=== PATIENT | female | born 1950 | race Caucasian/White ===

== ENCOUNTER → 2017-11-12 | Outpatient (CLI) | payer MEDICARE, OTHER ==
[~2017-11-12] MED LIST: BUSP15 PO; Bactrim Ds Tab1 EACH PO; CITA20 PO; CRUTCH2 UD; CYCL10 PO; ESTR.05P TOP; FAMO10 PO; FURO20 PO; HYDACE5 PO; HYDACE5325 PO; MELO7.5 PO; OXYC1TAB11 PO; POTCHL10ER PO; PRED20 PO; PROG100 PO; lithium PO
== END | disposition home or self-care (01) ==
LOC: LAB 17:39 → LAB SHORT 17:39
DX: N89.8 Other specified noninflammatory disorders of vagina (principal)
CPT/HCPCS: 87070; 87205

== ENCOUNTER → 2018-04-28 | Outpatient (CLI) | payer MEDICARE, OTHER | END | disposition home or self-care (01) | LOC: LAB SHORT 14:23 → LAB EV 14:23 | DX: L03.90 Cellulitis, unspecified (principal) | CPT/HCPCS: 87070; 87075; 87205 ==

== ENCOUNTER 2018-05-27 11:28 | Emergency (ER) | payer MEDICARE, OTHER ==
[~2018-05-27] VITALS: Ht 172.7 cm; Wt 114.3 kg
[2018-05-27 12:06] LABS: BASOPHILS ABSOLUTE AUTO 0.04 K/mm3 (0.00-0.23); BASOPHILS PERCENT AUTO 1 % (0-2); EOSINOPHILS PERCENT AUTO 5 % (0-6); Hematocrit 34.3 % (33.0-51.0); Hemoglobin 10.3 g/dL (11.5-16.0); IMMATURE GRAN ABSOLUTE AUTO 0.02 K/mm3 (0.00-0.10); IMMATURE GRAN PERCENT AUTO 0 % (0-1); LYMPHOCYTES ABSOLUTE AUTO 1.41 K/mm3 (0.84-5.20); LYMPHOCYTES PERCENT AUTO 25 % (21-46); MONOCYTES PERCENT AUTO 10 % (4-13); Mean Corpuscular HGB 24.6 pg (26.0-34.0); Mean Corpuscular Volume 82 fL (80-100); Mean Platelet Volume 9.4 fL (9.1-12.4); NEUTROPHILS ABSOLUTE AUTO 3.39 K/mm3 (1.96-9.15); NEUTROPHILS PERCENT AUTO 59 % (41-73); Platelet Count 199 K/mm3 (150-400); RDW Coefficient Variation 14.4 % (11.7-14.2); RDW Standard Deviation 42.4 fL (35.1-46.3); Red Blood Cell Count 4.18 M/mm3 (3.80-5.20); White Blood Cell Count 5.76 K/mm3 (4.00-11.30)
[2018-05-27 12:27] LABS: Albumin, Blood 3.9 g/dL (3.4-5.0); Bilirubin, Total 0.4 mg/dL (0.1-1.0); Calcium, Blood 8.6 mg/dL (8.5-10.1); Creatinine, Blood 1.21 mg/dL (0.40-1.00); Globulin, Blood 3.9 g/dL (2.2-4.0); Potassium, Blood 3.5 mmol/L (3.5-5.5); Total Protein, Blood 7.8 g/dL (6.4-8.2)
[2018-05-27] MEDS ORDERED: DICL75ER PO (12:50)
[2018-05-27] MEDS ORDERED: Buspirone HCl7.5 MG PO (12:50)
[2018-05-27] MEDS ORDERED: ESTRADIOL1 EACH TD (12:50)
[2018-05-27] MEDS ORDERED: DESVENLAFAXINE100 M3 PO (12:51)
[2018-05-27] MEDS ORDERED: DICLOFENAC SOD100 G1 TOP (12:51)
[2018-05-27] MEDS ORDERED: Percocet 10-321 EACH PO (12:51)
[2018-05-27] MEDS ORDERED: TRAZ50 PO (12:51)
== END 2018-05-27 14:00 | disposition home or self-care (01) ==
LOC: ER 11:28
PROVIDERS: Emergency Medicine
DX: F41.9 Anxiety disorder, unspecified (principal); N17.9 Acute kidney failure, unspecified; Z79.899 Other long term (current) drug therapy; Z79.891 Long term (current) use of opiate analgesic
CPT/HCPCS: 36415; 71045; 80053; 85025; 93005; 93010; 99284-25

== ENCOUNTER → 2018-07-03 | Outpatient (CLI) | payer MEDICARE, OTHER ==
[~2018-07-03] MED LIST changes: +Buspirone HCl7.5 MG PO; +DESVENLAFAXINE100 M3 PO; +DICL75ER PO; +DICLOFENAC SOD100 G1 TOP; +ESTRADIOL1 EACH TD; +Percocet 10-321 EACH PO; +TRAZ50 PO
== END | disposition home or self-care (01) ==
LOC: LAB SHORT 13:50 → LAB 13:50
DX: N39.0 Urinary tract infection, site not specified (principal)
CPT/HCPCS: 87077; 87086; 87186

== ENCOUNTER → 2018-09-14 | Outpatient (CLI) | payer MEDICARE, OTHER ==
[~2018-09-14] MED LIST changes: +CENTRUM SILVER1 EAC2 PO; +DESV50 PO; +FAMO20 PO; +FURO40 PO; +GABA100 PO; +GABA300 PO; +MERIBIN5 MG PO; +MINIVELLE1 EACH TD; +OMEPRAZOLE20 MG PO; +Oxycodone-Apap1 EA14 PO
== END | disposition home or self-care (01) ==
LOC: LAB SHORT 14:20 → LAB 14:20
DX: N39.0 Urinary tract infection, site not specified (principal)
CPT/HCPCS: 87077; 87086; 87186

== ENCOUNTER 2018-11-13 05:48 | Day surgery (SDC) | payer MEDICARE, OTHER ==
[~2018-11-13] VITALS: Ht 160 cm; Wt 117.0 kg
[~2018-11-13 05:48] MED LIST changes: -CENTRUM SILVER1 EAC2 PO; -DESV50 PO; -FAMO20 PO; -FURO40 PO; -GABA100 PO; -GABA300 PO; -MERIBIN5 MG PO; -MINIVELLE1 EACH TD; -OMEPRAZOLE20 MG PO; -Oxycodone-Apap1 EA14 PO
[2018-11-13] MEDS ORDERED: Oxycodone-Apap1 EA14 PO (06:24)
[2018-11-13] MEDS ORDERED: FURO40 PO (06:25)
[2018-11-13] MEDS ORDERED: FURO20 PO (06:25)
[2018-11-13] MEDS ORDERED: FAMO20 PO (06:25)
[2018-11-13] MEDS ORDERED: CENTRUM SILVER1 EAC2 PO (06:26)
[2018-11-13] MEDS ORDERED: DESV50 PO (06:26)
[2018-11-13] MEDS ORDERED: MINIVELLE1 EACH TD (06:27)
[2018-11-13] MEDS ORDERED: PROG100 PO (06:28)
[2018-11-13] MEDS ORDERED: OMEPRAZOLE20 MG PO (06:28)
[2018-11-13] MEDS ORDERED: MERIBIN5 MG PO (06:34)
[2018-11-13] MEDS ORDERED: GABA300 PO (06:36)
[2018-11-13] MEDS ORDERED: GABA100 PO (06:37)
--- NOTE | 2018-11-13 08:35 | NUR ---
PT ARRIVED BACK TO RECOVERY ROOM IN BED. RIGHT RADIAL TR BAND SITE WITH WRIST BOARD SOFT NON-TENDER WITH NO HEMATOMA AND NO PULSATILE BLEEDING. PT DENIES CHEST PAIN. CALL LIGHT IN REACH.
--- NOTE | 2018-11-13 10:40 | NUR ---
10CC AIR REMOVED FROM R WRIST TR BAND. -BLEEDING OR SWELLING.
--- NOTE | 2018-11-13 11:48 | NUR ---
TR BAND REMOVED FROM R WRIST. -BLEEDING OR SWELLING. PUNCTURE AREA CLEANED WITH NS. CLOTH DOT DRSG PLACED. R WRIST SPLINT REAPPLIED. IV REMOVED. PT VERBALIZED UNDERSTANDING OF WRITTEN AND VERBAL D/C INST. PT TAKEN OUT OF THE HRT CENTER VIA W/C.
== END 2018-11-13 12:00 | disposition home or self-care (01) ==
LOC: MHTC 05:48
DX: I25.119 Atherosclerotic heart disease of native coronary artery with unspecified angina pectoris (principal); I10 Essential (primary) hypertension; E66.9 Obesity, unspecified; Z82.49 Family history of ischemic heart disease and other diseases of the circulatory system; M19.90 Unspecified osteoarthritis, unspecified site; E11.22 Type 2 diabetes mellitus with diabetic chronic kidney disease; N18.9 Chronic kidney disease, unspecified; K21.9 Gastro-esophageal reflux disease without esophagitis; F41.9 Anxiety disorder, unspecified
CPT/HCPCS: 82947; 93454; 99152; 99153; C1769; C1894; J1644; J1885; J2250; J3010; J7030; Q9967

== ENCOUNTER → 2019-02-01 | Outpatient (CLI) | payer MEDICARE, OTHER ==
[~2019-02-01] MED LIST changes: +CENTRUM SILVER1 EAC2 PO; +DESV50 PO; +FAMO20 PO; +FURO40 PO; +GABA100 PO; +GABA300 PO; +MERIBIN5 MG PO; +MINIVELLE1 EACH TD; +OMEPRAZOLE20 MG PO; +Oxycodone-Apap1 EA14 PO
== END ==
LOC: LAB SHORT 18:09 → LAB 18:09
DX: N39.0 Urinary tract infection, site not specified (principal)
CPT/HCPCS: 87086

== ENCOUNTER 2019-04-09 13:56 | Observation (INO) | payer MEDICARE, OTHER ==
[~2019-04-09] VITALS: Ht 165.1 cm; Wt 90.7 kg
[~2019-04-09 13:56] MED LIST changes: -Buspirone HCl7.5 MG PO; -DESV50 PO; -GABA100 PO; -MINIVELLE1 EACH TD; -OMEPRAZOLE20 MG PO; -OXYC1TAB11 PO; -TRAZ50 PO
[2019-04-09 15:03] LABS: BASOPHILS ABSOLUTE AUTO 0.04 K/mm3 (0.00-0.23); BASOPHILS PERCENT AUTO 1 % (0-2); EOSINOPHILS ABSOLUTE AUTO 0.13 K/mm3 (0.00-0.68); EOSINOPHILS PERCENT AUTO 2 % (0-6); Hematocrit 37.5 % (33.0-51.0); Hemoglobin 12.7 g/dL (11.5-16.0); IMMATURE GRAN ABSOLUTE AUTO 0.02 K/mm3 (0.00-0.10); IMMATURE GRAN PERCENT AUTO 0 % (0-1); LYMPHOCYTES ABSOLUTE AUTO 1.48 K/mm3 (0.84-5.20); LYMPHOCYTES PERCENT AUTO 23 % (21-46); MONOCYTES PERCENT AUTO 9 % (4-13); Mean Corpuscular HGB 31.4 pg (26.0-34.0); Mean Corpuscular HGB Conc 33.9 g/dL (31.5-36.5); Mean Corpuscular Volume 93 fL (80-100); Mean Platelet Volume 8.8 fL (9.1-12.4); NEUTROPHILS ABSOLUTE AUTO 4.12 K/mm3 (1.96-9.15); NEUTROPHILS PERCENT AUTO 65 % (41-73); Platelet Count 177 K/mm3 (150-400); RDW Coefficient Variation 12.4 % (11.7-14.2); RDW Standard Deviation 41.8 fL (35.1-46.3); Red Blood Cell Count 4.05 M/mm3 (3.80-5.20); White Blood Cell Count 6.39 K/mm3 (4.00-11.30)
[2019-04-09 15:07] LABS: Alanine Aminotransfer (ALT/SGP 23 U/L (12-78); Albumin, Blood 3.7 g/dL (3.4-5.0); Albumin/Globulin Ratio 0.9 (0.8-1.8); Alk Phos 116 U/L (50-136); Anion Gap 7 mmol/L (6-16); Aspartate Aminotrans (AST/SGOT 13 U/L (12-37); Bilirubin, Total 0.5 mg/dL (0.1-1.0); Blood Urea Nitrogen 13 mg/dL (8-24); Bun/Creatinine Ratio 17.3 (12.0-20.0); CO2, Blood 26 mmol/L (21-32); Calcium, Blood 9.1 mg/dL (8.5-10.1); Chloride, Blood 106 mmol/L (98-108); Creatinine, Blood 0.75 mg/dL (0.40-1.00); Ethanol (Alcohol), Blood, Med <3 mg/dL; Globulin, Blood 4.2 g/dL (2.2-4.0); Glomerular Filtration Rate >60 (60-); Glucose, Blood 92 mg/dL (70-99); Salicylate <1.7 mg/dL (2.8-20.0); Sodium, Blood 139 mmol/L (136-145); Total Protein, Blood 7.9 g/dL (6.4-8.2)
[2019-04-09 15:08] LABS: Acetaminophen, Random <2.0 ug/mL (10.0-30.0)
[2019-04-09] MEDS ORDERED: Norco 10-325 T1 EACH PO (17:27)
[2019-04-09] MEDS ORDERED: Voltaren100 GM TOP (17:27)
[2019-04-09] MEDS ORDERED: CYCL10 PO (17:28)
[2019-04-09] MEDS ORDERED: OXYC1TAB11 PO (18:32)
[2019-04-09] MEDS ORDERED: MINIVELLE1 EACH TOP (18:33)
[2019-04-09] MEDS ORDERED: PROG100 PO (18:34)
[2019-04-09] MEDS ORDERED: Buspirone HCl7.5 MG PO (18:34)
[2019-04-09] MEDS ORDERED: DESVENLAFAXINE100 M2 PO (18:36)
[2019-04-09] MEDS ORDERED: GABA300 PO (18:36)
[2019-04-09] MEDS ORDERED: OMEPRAZOLE20 MG PO (18:38)
[2019-04-09] MEDS ORDERED: MYRBETRIQ50 MG PO (18:39)
[2019-04-09] MEDS ORDERED: TRAZ100 PO (18:39)
[2019-04-09] MEDS ORDERED: ATOR40TA PO (18:41)
[2019-04-09 18:47] LABS: Source, Urine Voided
[2019-04-09 18:51] LABS: Bilirubin, Urine Neg (Neg); Blood, Urine Neg (Neg); Glucose Qualitative, Urine Neg (Neg); Ketones, Urine Neg (Neg); Leukocyte Esterase, Urine 1+ (Neg); Nitrite, Urine Neg (Neg); Protein, Urine Neg (Neg); Urobilinogen, Urine NORM (Normal)
[2019-04-09] MEDS ORDERED: Aspir 8181 MG PO (19:10)
[2019-04-09 19:13] LABS: Appearance, Urine Clear (Clear); Color, Urine Yellow (P-Yellow)
[2019-04-09 19:14] LABS: Bacteria Few /hpf; Red Blood Cells, Urine 0-2 /hpf (0-2); Squamous Epithelial Cells Few /hpf (Few)
[2019-04-09 19:26] LABS: U Amphetamine Screen Not Detected; U Barbituate Screen Not Detected; U Benzodiazapine Screen Not Detected; U Buprenorphine Screen Not Detected; U Cannabinoids Screen Not Detected; U Cocaine Screen Not Detected; U Methadone Screen Not Detected; U Methamphetamine Screen Not Detected; U Opiates Screen Not Detected; U Oxycodone Screen DETECTED; U Phencyclidine Screen Not Detected; U Propoxyphene Screen Not Detected
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
--- NOTE | 2019-04-10 10:24 | NUR ---
CALLED CARROLL IN DISCHARGE PLANNING AND SHE WILL SEE IF SHE CAN FIND SOME RESOURCES TO HELP THE PT WITH SOME OF HER HOME ISSUES.
--- NOTE | 2019-04-10 14:30 | NUR ---
SPOKE TO STUDY LEAD XIAO- PT TELE-PSYCH REPORT IS STILL PENDING IN THE COMPUTER. SPOKE TO MARIANA STEWARD IN PALLIATIVE CARE WHO REVIEWED THE CHART AND SAW THE ADDENDUM DR IBARRA PLACED. VASYL LEONARD CALLED ED AND HAD A COPY OF THE REPORT SENT UP FOR DR FLORES TO READ. PT TO DISCHARGE HOME. SAFETY PLAN TO BE COMPLETED PRIOR TO DISCHARGE. 2MD HOLD LIFTED. CAMERAS DC'D.
--- NOTE | 2019-04-10 17:11 | NUR ---
DISCHARGE NOTE- PT WAS GIVEN VERBAL AND WRITTEN DISCHARGE INSTRUCTIONS AND ACKNOWLEDGED UNDERSTANDING OF THEM. PT WAS ESCORTED OUT VIA W/C TO THE PT ENTRANCE BY THE TOASTER OPERATOR, NO FURTHER QUESTIONS AT THE TIME OF DISCHARGE. PT HAD NO IV ACCESS TO DC.
== END 2019-04-10 16:48 | disposition home or self-care (01) ==
LOC: ER 13:56 → MEDS 13:57
PROVIDERS: Emergency Medicine; ADMIT Hospitalist
DX: R45.851 Suicidal ideations (principal); R73.03 Prediabetes; K21.9 Gastro-esophageal reflux disease without esophagitis; N39.3 Stress incontinence (female) (male); E78.5 Hyperlipidemia, unspecified; M19.90 Unspecified osteoarthritis, unspecified site; Z79.82 Long term (current) use of aspirin; Z79.899 Other long term (current) drug therapy; Z91.040 Latex allergy status
CPT/HCPCS: 36415; 80053; 81001; 85025; 87086; 96372; 99285-25; A9270-GY; G0378; G0480; J1650; Q3014

== ENCOUNTER → 2019-10-18 | Outpatient (CLI) | payer MEDICARE, OTHER ==
[~2019-10-18] MED LIST changes: +ATOR40TA PO; +Aspir 8181 MG PO; +Buspirone HCl7.5 MG PO; +DESVENLAFAXINE100 M2 PO; +MINIVELLE1 EACH TOP; +MYRBETRIQ50 MG PO; +Norco 10-325 T1 EACH PO; +OMEPRAZOLE20 MG PO; +OXYC1TAB11 PO; +TRAZ100 PO; +Voltaren100 GM TOP
== END | disposition home or self-care (01) ==
LOC: LAB 19:08 → LAB SHORT 19:08
DX: R39.15 Urgency of urination (principal)
CPT/HCPCS: 87077; 87086; 87186

== ENCOUNTER 2022-05-28 14:48 | Emergency (ER) | payer MEDICARE, OTHER ==
[~2022-05-28] VITALS: Ht 160 cm; Wt 76.2 kg
[2022-05-28 15:20] LABS: BASOPHILS ABSOLUTE AUTO 0.02 K/mm3 (0.00-0.23); BASOPHILS PERCENT AUTO 0 % (0-2); EOSINOPHILS ABSOLUTE AUTO 0.18 K/mm3 (0.00-0.68); EOSINOPHILS PERCENT AUTO 3 % (0-6); Hematocrit 33.4 % (33.0-51.0); Hemoglobin 10.3 g/dL (11.5-16.0); IMMATURE GRAN ABSOLUTE AUTO 0.03 K/mm3 (0.00-0.10); IMMATURE GRAN PERCENT AUTO 0 % (0-1); LYMPHOCYTES ABSOLUTE AUTO 1.31 K/mm3 (0.84-5.20); LYMPHOCYTES PERCENT AUTO 19 % (21-46); MONOCYTES ABSOLUTE AUTO 0.62 K/mm3 (0.16-1.47); MONOCYTES PERCENT AUTO 9 % (4-13); Mean Corpuscular HGB 26.5 pg (26.0-34.0); Mean Corpuscular HGB Conc 30.8 g/dL (31.5-36.5); Mean Corpuscular Volume 86 fL (80-100); Mean Platelet Volume 8.7 fL (9.1-12.4); NEUTROPHILS ABSOLUTE AUTO 4.82 K/mm3 (1.96-9.15); NEUTROPHILS PERCENT AUTO 69 % (41-73); Platelet Count 211 K/mm3 (150-400); RDW Coefficient Variation 13.9 % (11.7-14.2); RDW Standard Deviation 42.6 fL (35.1-46.3); Red Blood Cell Count 3.89 M/mm3 (3.80-5.20); White Blood Cell Count 6.98 K/mm3 (4.00-11.30)
[2022-05-28 15:27] LABS: Albumin, Blood 3.3 g/dL (3.4-5.0); Albumin/Globulin Ratio 0.8 (0.8-1.8); Bilirubin, Total 0.4 mg/dL (0.1-1.0); Bun/Creatinine Ratio 21.7 (12.0-20.0); Calcium, Blood 8.9 mg/dL (8.5-10.1); Creatinine, Blood 0.78 mg/dL (0.40-1.00); Globulin, Blood 4.4 g/dL (2.2-4.0); Potassium, Blood 4.1 mmol/L (3.5-5.5); Total Protein, Blood 7.7 g/dL (6.4-8.2)
== END 2022-05-28 17:20 | disposition home or self-care (01) ==
LOC: ER 14:48
PROVIDERS: Physician Assistant
DX: J20.8 Acute bronchitis due to other specified organisms (principal); K08.89 Other specified disorders of teeth and supporting structures; R05.9 Cough, unspecified; Z91.040 Latex allergy status; Z79.899 Other long term (current) drug therapy; Z79.82 Long term (current) use of aspirin
CPT/HCPCS: 36415; 71046; 80053; 85025; 99284-25

== ENCOUNTER → 2023-03-13 | Outpatient (CLI) | payer MEDICARE, OTHER ==
[2023-03-13 13:48] LABS: CHOL/HDL RATIO 1.5; Cholesterol 144 mg/dL (50-200); HDL Cholesterol 97 mg/dL (>39); LDL/HDL RATIO 0.4; Low Density Lipoprotein Chol 34 mg/dL (0-110); Triglycerides 64 mg/dL (30-160); Very Low Density Lipoprot Chol 12 mg/dL (6-32)
== END ==
LOC: LAB SHORT 11:31 → LAB 11:31
PROVIDERS: Student in an Organized Health Care Education/Training Program
DX: E78.5 Hyperlipidemia, unspecified (principal)
CPT/HCPCS: 80061

== ENCOUNTER → 2023-03-28 | Outpatient (CLI) | payer MEDICARE, OTHER ==
[2023-03-28 13:13] LABS: BASOPHILS ABSOLUTE AUTO 0.01 K/mm3 (0.00-0.23); BASOPHILS PERCENT AUTO 0 % (0-2); EOSINOPHILS ABSOLUTE AUTO 0.16 K/mm3 (0.00-0.68); EOSINOPHILS PERCENT AUTO 3 % (0-6); Hematocrit 34.7 % (33.0-51.0); Hemoglobin 11.1 g/dL (11.5-16.0); IMMATURE GRAN ABSOLUTE AUTO 0.01 K/mm3 (0.00-0.10); IMMATURE GRAN PERCENT AUTO 0 % (0-1); LYMPHOCYTES ABSOLUTE AUTO 0.69 K/mm3 (0.84-5.20); LYMPHOCYTES PERCENT AUTO 14 % (21-46); MONOCYTES ABSOLUTE AUTO 0.65 K/mm3 (0.16-1.47); MONOCYTES PERCENT AUTO 13 % (4-13); Mean Corpuscular HGB 27.3 pg (26.0-34.0); Mean Corpuscular Volume 86 fL (80-100); Mean Platelet Volume 9.6 fL (9.1-12.4); NEUTROPHILS ABSOLUTE AUTO 3.38 K/mm3 (1.96-9.15); NEUTROPHILS PERCENT AUTO 69 % (41-73); Platelet Count 137 K/mm3 (150-400); RDW Coefficient Variation 13.3 % (11.7-14.2); RDW Standard Deviation 41.8 fL (35.1-46.3); Red Blood Cell Count 4.06 M/mm3 (3.80-5.20)
[2023-03-30 03:42] LABS: A/G RATIO 1.4 (1.2-2.2); ALKALINE PHOSPHATASE, S 110 IU/L (44-121); ALT (SGPT) 19 IU/L (0-32); AST (SGOT) 19 IU/L (0-40); BILIRUBIN, TOTAL <0.2 mg/dL (0.0-1.2); BUN 21 mg/dL (8-27); BUN/CREATININE RATIO 23 (12-28); CALCIUM, SERUM 8.4 mg/dL (8.7-10.3); CARBON DIOXIDE, TOTAL 19 mmol/L (20-29); CHLORIDE, SERUM 102 mmol/L (96-106); CREATININE, SERUM 0.92 mg/dL (0.57-1.00); GLOBULIN, TOTAL 2.9 g/dL (1.5-4.5); GLUCOSE, SERUM 102 mg/dL (70-99); POTASSIUM, SERUM 4.7 mmol/L (3.5-5.2); PROTEIN, TOTAL, SERUM 7.1 g/dL (6.0-8.5); SODIUM, SERUM 137 mmol/L (134-144)
== END ==
LOC: LAB 11:35 → LAB SHORT 11:35
PROVIDERS: Student in an Organized Health Care Education/Training Program
DX: R53.83 Other fatigue (principal)
CPT/HCPCS: 80053; 84443; 85025

== ENCOUNTER 2023-06-08 16:08 | Emergency (ER) | payer BC ==
[~2023-06-08] VITALS: Ht 170.2 cm; Wt 104.3 kg
[2023-06-08 16:12] VITALS: BP 153/73
[2023-06-08] MEDS ORDERED: Acetaminophen 500 MG Tab PO ONE (16:25)
[2023-06-08] MEDS ORDERED: Ketorolac Tromethamine 30mg Vial IM ONE (16:25)
[2023-06-08] MEDS ORDERED: Cyclobenzaprine HCl 10 MG Tab PO ONE (16:25)
[2023-06-08] MEDS ORDERED: Cyclobenzaprine5 MG PO (16:31)
== END 2023-06-08 16:48 | disposition home or self-care (01) ==
LOC: ER 16:08
DX: S80.02XA Contusion of left knee, initial encounter (principal); S80.01XA Contusion of right knee, initial encounter; S43.402A Unspecified sprain of left shoulder joint, initial encounter; S43.401A Unspecified sprain of right shoulder joint, initial encounter; S13.4XXA Sprain of ligaments of cervical spine, initial encounter; M17.0 Bilateral primary osteoarthritis of knee; M19.011 Primary osteoarthritis, right shoulder; M19.012 Primary osteoarthritis, left shoulder; W01.0XXA Fall on same level from slipping, tripping and stumbling without subsequent striking against object, initial encounter; Z91.040 Latex allergy status; Z79.890 Hormone replacement therapy; Z79.899 Other long term (current) drug therapy; Z79.82 Long term (current) use of aspirin
CPT/HCPCS: 96372; 99283-25; A9270; J1885

== ENCOUNTER → 2024-02-24 | Outpatient (CLI) | payer MEDICARE, OTHER ==
[~2024-02-24] MED LIST changes: +Cyclobenzaprine5 MG PO
[2024-03-04 10:36] LABS: B PERTUSSIS/PARAPERTUSS SOURCE Nasopharyngeal; BORD PARAPERTUSSIS BY PCR Not Detected; BORDETELLA PERTUSSIS BY PCR Not Detected
== END | disposition home or self-care (01) ==
LOC: LAB SHORT 18:55 → LAB 18:55
PROVIDERS: Student in an Organized Health Care Education/Training Program
DX: R05.3 Chronic cough (principal)
CPT/HCPCS: 87798

== ENCOUNTER → 2024-09-02 | Outpatient (CLI) | payer MEDICARE, OTHER ==
[~2024-09-02] MED LIST changes: +ACET500 PO; +ATOR10 PO; -ATOR40TA PO; +BUPR100 PO; +NAPR500ERA PO; +OMEP20ER PO; -OMEPRAZOLE20 MG PO; -OXYC1TAB11 PO; +OXYCODONE-ACET1 EAC2 PO; +PREMARIN0.45 MG PO; -TRAZ100 PO; +TRAZ50 PO; +Vitamin B Comple1 EA PO
[2024-09-03 07:54] LABS: Influenza A/2009-H1 Not Detected (NOT DETECT); SARS-Cov-2 (COVID-19), BioFire Not Detected (NOT DETECT)
== END ==
LOC: LAB SHORT 19:00 → LAB 19:00
PROVIDERS: Student in an Organized Health Care Education/Training Program
DX: J06.9 Acute upper respiratory infection, unspecified (principal)
CPT/HCPCS: 0202U

== ENCOUNTER 2024-09-25 20:25 | Observation (INO) | payer MEDICARE, OTHER ==
[~2024-09-25] VITALS: Ht 160 cm; Wt 95.2 kg
[2024-09-25 20:51] LABS: BASOPHILS ABSOLUTE AUTO 0.05 K/mm3 (0.00-0.23); BASOPHILS PERCENT AUTO 1 % (0-2); EOSINOPHILS ABSOLUTE AUTO 0.36 K/mm3 (0.00-0.68); EOSINOPHILS PERCENT AUTO 5 % (0-6); Hematocrit 37.8 % (33.0-51.0); Hemoglobin 13.1 g/dL (11.5-16.0); IMMATURE GRAN ABSOLUTE AUTO 0.02 K/mm3 (0.00-0.10); IMMATURE GRAN PERCENT AUTO 0 % (0-1); LYMPHOCYTES ABSOLUTE AUTO 1.96 K/mm3 (0.84-5.20); LYMPHOCYTES PERCENT AUTO 27 % (21-46); MONOCYTES ABSOLUTE AUTO 0.93 K/mm3 (0.16-1.47); MONOCYTES PERCENT AUTO 13 % (4-13); Mean Corpuscular HGB Conc 34.7 g/dL (31.5-36.5); Mean Corpuscular Volume 89 fL (80-100); NEUTROPHILS ABSOLUTE AUTO 4.05 K/mm3 (1.96-9.15); NEUTROPHILS PERCENT AUTO 55 % (41-73); NRBC ABSOLUTE 0.00 K/mm3 (0.00-0.02); NRBC Auto 0.0 /100 WBC (0.0-0.2); Platelet Count 200 K/mm3 (150-400); RDW Coefficient Variation 13.4 % (11.7-14.2); RDW Standard Deviation 43.1 fL (35.1-46.3)
[2024-09-25 21:19] LABS: Alanine Aminotransfer (ALT/SGP 64.0 U/L (12-78); Albumin, Blood 3.7 g/dL (3.4-5.0); Albumin/Globulin Ratio 0.9 (0.8-1.8); Anion Gap 10.0 mmol/L (3-11); Aspartate Aminotrans (AST/SGOT 79.0 U/L (12-37); Bilirubin, Total 0.8 mg/dL (0.1-1.0); Blood Urea Nitrogen 37.0 mg/dL (8-24); CO2, Blood 21.0 mmol/L (21-32); Calcium, Blood 8.9 mg/dL (8.5-10.1); Chloride, Blood 112.0 mmol/L (98-108); Creatinine, Blood 1.26 mg/dL (0.40-1.00); Globulin, Blood 4.0 g/dL (2.2-4.0); Glucose, Blood 131.0 mg/dL (70-99); Potassium, Blood 3.3 mmol/L (3.5-5.5); Sodium, Blood 140.0 mmol/L (136-145); Total Protein, Blood 7.7 g/dL (6.4-8.2)
[2024-09-25] MEDS ORDERED: NS 1,000 ML IV SCH (21:40)
[2024-09-25 23:04] LABS: Source, Urine Straight Cath
[2024-09-25 23:20] LABS: Bilirubin, Urine Neg (Neg); Glucose Qualitative, Urine Neg (Neg); Ketones, Urine 1+ (Neg); Leukocyte Esterase, Urine 1+ (Neg); Protein, Urine 2+ (Neg); Specific Gravity, Urine 1.020 (1.003-1.022); Urobilinogen, Urine NORM (Normal)
[2024-09-25 23:29] LABS: Color, Urine Yellow (P-Yellow)
[2024-09-25 23:30] LABS: Red Blood Cells, Urine 0-2 /hpf (0-2)
[2024-09-26] VITALS (17 sets, daily range): BP systolic 94–139; BP diastolic 53–97
[2024-09-26] MEDS ORDERED: CefTRIAXone Sodium 1,000 MG in NS 50 ML IV ONE (01:35)
[2024-09-26] MEDS ORDERED: Magnesium Hydroxide Conc 10 ML UDC PO PRN (01:45)
[2024-09-26] MEDS ORDERED: NS 1,000 ML IV SCH (01:50)
[2024-09-26] MEDS ORDERED: Potassium Chl 20MEQ/Water100ML 100 ML IV STA (01:56)
[2024-09-26] MEDS ORDERED: MetroNIDAZOLE 500MG/NS 100 ml 100 ML IV SCH (02:14)
[2024-09-26] MEDS ORDERED: DESV50 PO (03:16)
[2024-09-26] MEDS ORDERED: MYRBETRIQ25 MG PO (03:18)
[2024-09-26 06:14] LABS: BASOPHILS ABSOLUTE AUTO 0.04 K/mm3 (0.00-0.23); BASOPHILS PERCENT AUTO 1 % (0-2); EOSINOPHILS ABSOLUTE AUTO 0.28 K/mm3 (0.00-0.68); EOSINOPHILS PERCENT AUTO 5 % (0-6); Hematocrit 33.9 % (33.0-51.0); Hemoglobin 11.4 g/dL (11.5-16.0); IMMATURE GRAN ABSOLUTE AUTO 0.01 K/mm3 (0.00-0.10); IMMATURE GRAN PERCENT AUTO 0 % (0-1); LYMPHOCYTES ABSOLUTE AUTO 2.01 K/mm3 (0.84-5.20); LYMPHOCYTES PERCENT AUTO 34 % (21-46); MONOCYTES ABSOLUTE AUTO 0.75 K/mm3 (0.16-1.47); MONOCYTES PERCENT AUTO 13 % (4-13); Mean Corpuscular HGB Conc 33.6 g/dL (31.5-36.5); Mean Corpuscular Volume 91 fL (80-100); NEUTROPHILS ABSOLUTE AUTO 2.76 K/mm3 (1.96-9.15); NEUTROPHILS PERCENT AUTO 47 % (41-73); NRBC ABSOLUTE 0.00 K/mm3 (0.00-0.02); NRBC Auto 0.0 /100 WBC (0.0-0.2); Platelet Count 150 K/mm3 (150-400); RDW Coefficient Variation 13.6 % (11.7-14.2); RDW Standard Deviation 44.4 fL (35.1-46.3)
[2024-09-26 06:32] LABS: Anion Gap 10.0 mmol/L (3-11); Blood Urea Nitrogen 32.0 mg/dL (8-24); CO2, Blood 22.0 mmol/L (21-32); Calcium, Blood 7.9 mg/dL (8.5-10.1); Chloride, Blood 113.0 mmol/L (98-108); Creatinine, Blood 0.94 mg/dL (0.40-1.00); Glucose, Blood 90.0 mg/dL (70-99); Potassium, Blood 3.4 mmol/L (3.5-5.5); Sodium, Blood 142.0 mmol/L (136-145)
[2024-09-26] MEDS ORDERED: Ondansetron HCl 2 MG / ML 2ML Vial ONE ×2 (07:04→10:18)
[2024-09-26] MEDS ORDERED: Dexamethasone Sod Phos 10 MG/ML 1ML VIAL ONE ×2 (07:04→10:18)
[2024-09-26] MEDS ORDERED: Rocuronium Bromide 10 MG/ML 5ML Injection IV ONE ×2 (07:04→10:22)
[2024-09-26] MEDS ORDERED: FentaNYL Citrate 50 MCG/ML 2 ML Injection ONE (07:06)
[2024-09-26] MEDS ORDERED: Ondansetron HCl 2 MG / ML 2ML Vial IV PRN (07:25)
[2024-09-26] MEDS ORDERED: FentaNYL Citrate 50 MCG/ML 2 ML Injection IV PRN ×2 (07:25)
[2024-09-26] MEDS ORDERED: Albuterol 2.5 MG/3 ML VIAL INH PRN (07:25)
[2024-09-26] MEDS ORDERED: HYDROmorphone HCl/Pf 1MG SYR IV PRN (07:25)
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
[2024-09-26] MEDS ORDERED: Vitamin B Complex 1 EA Softgel PO SCH (09:00)
[2024-09-26] MEDS ORDERED: Lactobacil 2-S.Thermo-Bifido 1 1 Cap PO SCH (09:00)
--- NOTE | 2024-09-26 09:11 | NUR ---
PT TO PROCEDURE AT THIS TIME.
[2024-09-26] MEDS ORDERED: Lidocaine HCl 4% 5 ML SDA ONE (09:44)
[2024-09-26] MEDS ORDERED: Midazolam HCl 1MG / ML 2ML Vial ONE (09:46)
[2024-09-26] MEDS ORDERED: Bupivacaine 0.5% HCl 5 MG/ML 30MLVIAL ONE (09:52)
[2024-09-26] MEDS ORDERED: Midazolam HCl 1MG / ML 2ML Vial IV ONE (10:00)
[2024-09-26] MEDS ORDERED: Sugammadex Sodium 200 MG/2ML SDV (100 MG/ML) ONE (10:19)
[2024-09-26] MEDS ORDERED: Ketorolac Tromethamine 30mg Vial ONE (10:19)
[2024-09-26] MEDS ORDERED: HYDROmorphone HCl/Pf 1MG SYR ONE (11:49)
--- NOTE | 2024-09-26 12:21 | NUR ---
ARRIVAL PT ARRIVED TO UNIT FROM PACU, S/P SCOUT SWARTZ. PT AWAKENS AND ANSWERS QUESTIONS APPROPRIATLY. LAP SITES X4 CDI. BED ALARM ON PATIENT CAN BE IMPULSIVE AT TIMES. SHE REPORTS VERY MINIMAL PAIN TO ABD BUT STATES SHE HAS BACK PAIN FROM LAYING IN THE OR FOR SO LONG. TOLERATING SIPS OF WATER AT THIS TIME. ENCOURAGED PATIENT TO SLEEP.
--- NOTE | 2024-09-26 16:52 | NUR ---
SHIFT SUMMARY NO ACUTE CHANGES SINCE ARRIVAL TO UNIT. PT ABLE TO AMBULATE WELL IN ROOM, BUT REMAINS VERY TIRED. LAP SITES CDI. PT REMAINS EMOTIONALLY LABILE DURING SHIFT. BUT COOPERATIVE WITH CARE. POSSIBLE TO DISCHARGE TOMORROW. TOLERATING DIET WELL. NO NAUSEA REPORTED.
[2024-09-27] MEDS ORDERED: OMEPRAZOLE DR 20 MG (04:41)
[2024-09-27] MEDS ORDERED: CefTRIAXone Sodium 1,000 MG in NS 100 ML IV SCH (06:00)
[2024-09-27 07:07] VITALS: BP 112/59
[2024-09-27] MEDS ORDERED: DOCU100 PO (11:31)
[2024-09-27] MEDS ORDERED: SENN187 PO (11:31)
--- NOTE | 2024-09-27 12:16 | NUR ---
DISCHARGE: PT ALERT, Ox4, LABILE BUT RESPONDS TO REDIRECTION AND THERAPUETIC APPROACH. VSS. PAIN APPROPRIATELY MANAGED. PT HAS BEEN CLEARED FOR DISCHARGE HOME. IV ACCESS DC'd WNL. PT DRESSES SELF. DC PAPERWORK AND INSTRUCTIONS HAVE BEEN PROVIDED, PT V/U. PT ASSISTED FROM UNIT VIA W/C W/OUT INCIDENT.
== END 2024-09-27 12:00 | disposition home or self-care (01) ==
LOC: ER 20:25 → SURS 20:26
PROVIDERS: Emergency Medicine; Surgery; ADMIT Student in an Organized Health Care Education/Training Program
PROC: 0FT44ZZ Resection of Gallbladder, Percutaneous Endoscopic Approach (ICD-10-PCS; principal; 2024-09-26 10:00)
PROC: BF03YZZ Plain Radiography of Gallbladder and Bile Ducts using Other Contrast (ICD-10-PCS; principal; 2024-09-26 10:00)
DX: K80.10 Calculus of gallbladder with chronic cholecystitis without obstruction (principal); K82.8 Other specified diseases of gallbladder; E78.5 Hyperlipidemia, unspecified; K21.9 Gastro-esophageal reflux disease without esophagitis; N39.0 Urinary tract infection, site not specified; E87.6 Hypokalemia; R74.01 Elevation of levels of liver transaminase levels; R94.4 Abnormal results of kidney function studies; R74.8 Abnormal levels of other serum enzymes; F32.A Depression, unspecified; F41.9 Anxiety disorder, unspecified; M19.90 Unspecified osteoarthritis, unspecified site; Z66 Do not resuscitate; Z79.899 Other long term (current) drug therapy; Z91.040 Latex allergy status
CPT/HCPCS: 36415; 71046; 76705; 80048; 80053; 81001; 83605; 83690; 84484; 85025; 87077; 87086; 87186; 93005; 93010; 96365; 96366; 96375; A9270; G0378; J0696; J1100; J1171; J1885; J2003; J2250; J2405; J2704; J3010; J3480; J7030; J7050; J7120